=== PATIENT | male | born 1965 ===

== ENCOUNTER 2019-01-02 11:03 | Emergency (ER) | payer MEDICAID ==
[2019-01-02 11:09] VITALS: BP 125/78; PULSE 103; RESP 18; TEMP 98.6; O2SAT 99
--- NOTE | 2019-01-02 11:28 | ED PDOC ---
HPI: General Adult Time Seen by Provider: 01/02/19 11:14 Chief Complaint (Nursing): Medical Clearance Chief Complaint (Provider): Medical Clearance History Per: Patient, Other ([place] [employer]) History/Exam Limitations: no limitations Additional Complaint(s): 53 years old male with a history of hepatitis C brought in by [place] [employer] under arrest for DUI. Patient was found sleeping at the caterpillar driver side in a car that was at an intersection. He admits to heroin abuse and reports he has not used heroin since last night. Patient states he uses heroin by snorting it. He complains of bring very anxious at this time. Otherwise, patient has no physical complaints. PMD: None provided Past Medical History Reviewed: Historical Data, Nursing Documentation, Vital Signs Vital Signs: Last Vital Signs Temp 98.6 F 01/02/19 11:09 Pulse 103 H 01/02/19 11:09 Resp 18 01/02/19 11:09 BP 125/78 01/02/19 11:09 Pulse Ox 99 01/02/19 11:09 - Medical History PMH: Hepatitis (C) - Surgical History Surgical History: No Surg Hx - Family History Family History: States: Unknown Family Hx - Social History Current smoker - smoking cessation education provided: Yes (Cigarettes) Alcohol: None Drugs: Other (Heroin) - Allergies Allergies/Adverse Reactions: Allergies Allergy/AdvReac Type Severity Reaction Status Date / Time No Known Allergies Allergy Verified 01/02/19 11:08 Review of Systems ROS Statement: Except As Marked, All Systems Reviewed And Found Negative Psych: Positive for: Anxiety Physical Exam - Reviewed Nursing Documentation Reviewed: Yes Vital Signs Reviewed: Yes - Physical Exam Appears: Positive for: In Acute Distress (psychotic distress and appears disheveled ) Head Exam: Positive for: ATRAUMATIC, NORMAL INSPECTION, NORMOCEPHALIC Skin: Positive for: Warm, Dry Eye Exam: Positive for: EOMI, PERRL ENT: Positive for: Normal ENT Inspection Neck: Positive for: Painless ROM, Supple Cardiovascular/Chest: Positive for: Tachycardia (regular rhythm) Respiratory: Positive for: Normal Breath Sounds. Negative for: Respiratory Distress Gastrointestinal/Abdominal: Positive for: Soft. Negative for: Tenderness Back: Positive for: Normal Inspection. Negative for: Muscle Spasm Extremity: Positive for: Normal ROM. Negative for: Deformity Lymphatic: Negative for: Adenopathy Neurologic/Psych: Positive for: Alert, Oriented (x3), Gait (Steady). Negative for: Motor/Sensory Deficits - ECG O2 Sat by Pulse Oximetry: 99 (RA) Pulse Ox Interpretation: Normal Medical Decision Making Medical Decision Making: Time: 1114 Initial impression: Heroin use disorder Initial plan: --Patient is medically stable for incarceration --Crisis evaluation for psychiatric clearance Evaluated by JAMES Bran who dw Psych oncall and pt is deemed psychiatrically stable Scribe Attestation: Documented by Leanne Sommer, acting as a scribe for Akilah Carlin MD. Provider Scribe Attestation: All medical record entries made by the Scribe were at my direction and personally dictated by me. I have reviewed the chart and agree that the record accurately reflects my personal performance of the history, physical exam, medical decision making, and the department course for this patient. I have also personally directed, reviewed, and agree with the discharge instructions and disposition. Disposition - Clinical Impression Clinical Impression: Heroin abuse - Disposition Referrals: [facility] [Outside] Disposition: Discharged/Transfer to Law Enforcement Disposition Time: 12:00 Condition: STABLE Additional Instructions: MEDICALLY AND PSYCHIATRICALLY STABLE FOR INCARCERATION Instructions: Opioid Use Disorder Forms: [employer] ([place])
== END 2019-01-02 12:45 | disposition home or self-care (01) ==
LOC: EDBD 11:03 → H.ER 11:03
DX: F11.10 Opioid abuse, uncomplicated (principal); B19.20 Unspecified viral hepatitis C without hepatic coma; F17.210 Nicotine dependence, cigarettes, uncomplicated